=== PATIENT | male | born 1970 | race Caucasian/White ===

== ENCOUNTER 2021-06-13 13:56 | Inpatient (IN) ==
[2021-06-13] MEDS ORDERED: 0.9 % Sodium Chloride 500 ML IVC ONE (14:12)
[2021-06-13] MEDS ORDERED: Naloxone 0.4 MG/ML INJ IVP PRN (15:15)
[2021-06-13] MEDS ORDERED: Ondansetron 4 MG/2 ML VIAL IVP PRN (15:15)
[2021-06-13] MEDS: *HR* Rivaroxaban 10 MG TABLET PO SCH (18:27)
[2021-06-13] MEDS: Sucralfate 1 GM TABLET PO SCH ×2 (18:27→20:57)
[2021-06-13] MEDS ORDERED: Metoprolol 100 MG TABLET PO SCH (21:00)
[2021-06-13] MEDS: Stomatitis Mixture 5 ML UDC PO SCH ×2 (21:03→21:18)
[2021-06-13] MEDS: Melatonin 3 MG TABLET PO PRN (22:23)
[2021-06-14] MEDS: Sucralfate 1 GM TABLET PO SCH ×4 (06:45→20:23)
[2021-06-14] MEDS ORDERED: Triamcinolone Acet 0.1% CRM 15 GM TUBE TP ONE (08:15)
[2021-06-14] MEDS: Spironolactone 25 MG TABLET PO SCH (08:25)
[2021-06-14] MEDS: Metoprolol 100 MG TABLET PO SCH ×2 (08:25→20:22)
[2021-06-14] MEDS: Furosemide 40 MG TABLET PO SCH (08:25)
[2021-06-14] MEDS: Lactobacillus 1 EACH CAP.SPRINK PO SCH ×2 (08:31→20:21)
[2021-06-14] MEDS: Clotrimazole 1% CRM 15 GM TUBE TP SCH (09:56)
[2021-06-14] MEDS: Stomatitis Mixture 5 ML UDC PO SCH ×4 (10:00→20:22)
[2021-06-14] MEDS: *HR* Rivaroxaban 10 MG TABLET PO SCH (17:31)
[2021-06-14] MEDS: Melatonin 3 MG TABLET PO PRN (22:34)
[2021-06-15] MEDS: Metoprolol 100 MG TABLET PO SCH ×2 (07:39→21:33)
[2021-06-15] MEDS: Sucralfate 1 GM TABLET PO SCH ×4 (07:40→21:36)
[2021-06-15] MEDS: Spironolactone 25 MG TABLET PO SCH (07:40)
[2021-06-15] MEDS: Stomatitis Mixture 5 ML UDC PO SCH ×5 (07:40→21:58)
[2021-06-15] MEDS: Furosemide 40 MG TABLET PO SCH (07:40)
[2021-06-15] MEDS: Lactobacillus 1 EACH CAP.SPRINK PO SCH ×2 (07:40→21:32)
[2021-06-15] MEDS: Clotrimazole 1% CRM 15 GM TUBE TP SCH (10:01)
[2021-06-15] MEDS: *HR* Rivaroxaban 10 MG TABLET PO SCH (17:35)
[2021-06-16] MEDS ORDERED: *HR* Promethazine 25 MG/ML VIAL IM PRN (02:23)
[2021-06-16] MEDS: Ondansetron 4 MG/2 ML VIAL IVP PRN (02:39)
[2021-06-16] MEDS: Stomatitis Mixture 5 ML UDC PO SCH ×5 (07:34→21:12)
[2021-06-16] MEDS: Furosemide 40 MG TABLET PO SCH (08:11)
[2021-06-16] MEDS: Metoprolol 100 MG TABLET PO SCH ×2 (08:11→21:05)
[2021-06-16] MEDS: Spironolactone 25 MG TABLET PO SCH (08:11)
[2021-06-16] MEDS: Clotrimazole 1% CRM 15 GM TUBE TP SCH (08:12)
[2021-06-16] MEDS: Lactobacillus 1 EACH CAP.SPRINK PO SCH ×2 (08:12→21:05)
[2021-06-16] MEDS: Sucralfate 1 GM TABLET PO SCH ×4 (11:20→21:05)
[2021-06-16] MEDS: *HR* Rivaroxaban 10 MG TABLET PO SCH (16:29)
[2021-06-17] MEDS: Metoprolol 100 MG TABLET PO SCH ×2 (07:45→20:20)
[2021-06-17] MEDS: Sucralfate 1 GM TABLET PO SCH ×4 (07:45→20:21)
[2021-06-17] MEDS: Lactobacillus 1 EACH CAP.SPRINK PO SCH ×2 (07:45→20:20)
[2021-06-17] MEDS: Furosemide 40 MG TABLET PO SCH (07:46)
[2021-06-17] MEDS: Spironolactone 25 MG TABLET PO SCH (07:46)
[2021-06-17] MEDS: Clotrimazole 1% CRM 15 GM TUBE TP SCH (07:48)
[2021-06-17] MEDS: Stomatitis Mixture 5 ML UDC PO SCH ×4 (08:12→20:20)
[2021-06-17] MEDS: *HR* Rivaroxaban 10 MG TABLET PO SCH (16:49)
[2021-06-17] MEDS: Melatonin 3 MG TABLET PO PRN (22:34)
[2021-06-18] MEDS ORDERED: Acetaminophen 325 MG TABLET PO ONE (02:17)
[2021-06-18] MEDS: Lactobacillus 1 EACH CAP.SPRINK PO SCH ×2 (07:35→20:23)
[2021-06-18] MEDS: Spironolactone 25 MG TABLET PO SCH (07:35)
[2021-06-18] MEDS: Sucralfate 1 GM TABLET PO SCH ×4 (07:36→22:15)
[2021-06-18] MEDS: Metoprolol 100 MG TABLET PO SCH ×2 (07:36→20:22)
[2021-06-18] MEDS: Furosemide 40 MG TABLET PO SCH (07:36)
[2021-06-18] MEDS: Clotrimazole 1% CRM 15 GM TUBE TP SCH (07:43)
[2021-06-18] MEDS: Stomatitis Mixture 5 ML UDC PO SCH ×4 (07:45→20:25)
[2021-06-18] MEDS: *HR* Rivaroxaban 10 MG TABLET PO SCH (15:38)
[2021-06-18] MEDS: Melatonin 3 MG TABLET PO PRN (22:15)
[2021-06-19] MEDS ORDERED: Acetaminophen 325 MG TABLET PO ONE (01:31)
[2021-06-19] MEDS: Spironolactone 25 MG TABLET PO SCH (07:32)
[2021-06-19] MEDS: Metoprolol 100 MG TABLET PO SCH ×2 (07:32→21:55)
[2021-06-19] MEDS: Lactobacillus 1 EACH CAP.SPRINK PO SCH ×2 (07:32→21:54)
[2021-06-19] MEDS: Furosemide 40 MG TABLET PO SCH (07:32)
[2021-06-19] MEDS: Sucralfate 1 GM TABLET PO SCH ×4 (07:32→21:55)
[2021-06-19] MEDS: Clotrimazole 1% CRM 15 GM TUBE TP SCH (09:32)
[2021-06-19] MEDS: Stomatitis Mixture 5 ML UDC PO SCH ×4 (11:00→21:55)
[2021-06-19] MEDS: *HR* Rivaroxaban 10 MG TABLET PO SCH (17:16)
[2021-06-19] MEDS: Melatonin 3 MG TABLET PO PRN (21:54)
[2021-06-20] MEDS: Lactobacillus 1 EACH CAP.SPRINK PO SCH ×2 (08:57→21:00)
[2021-06-20] MEDS: Furosemide 40 MG TABLET PO SCH (08:57)
[2021-06-20] MEDS: Sucralfate 1 GM TABLET PO SCH ×4 (08:57→21:00)
[2021-06-20] MEDS: Spironolactone 25 MG TABLET PO SCH (08:57)
[2021-06-20] MEDS: Metoprolol 100 MG TABLET PO SCH ×2 (08:57→21:00)
[2021-06-20] MEDS: Stomatitis Mixture 5 ML UDC PO SCH ×4 (08:58→21:00)
[2021-06-20] MEDS: Clotrimazole 1% CRM 15 GM TUBE TP SCH (08:58)
[2021-06-20] MEDS: *HR* Rivaroxaban 10 MG TABLET PO SCH (18:16)
[2021-06-20] MEDS: Melatonin 3 MG TABLET PO PRN (22:16)
[2021-06-21] MEDS: Furosemide 40 MG TABLET PO SCH (08:14)
[2021-06-21] MEDS: Metoprolol 100 MG TABLET PO SCH ×2 (08:15→22:00)
[2021-06-21] MEDS: Spironolactone 25 MG TABLET PO SCH (08:15)
[2021-06-21] MEDS: Clotrimazole 1% CRM 15 GM TUBE TP SCH (08:15)
[2021-06-21] MEDS: Lactobacillus 1 EACH CAP.SPRINK PO SCH ×2 (08:15→22:00)
[2021-06-21] MEDS: Stomatitis Mixture 5 ML UDC PO SCH ×4 (08:15→22:01)
[2021-06-21] MEDS: Sucralfate 1 GM TABLET PO SCH ×4 (08:15→22:00)
[2021-06-21] MEDS: *HR* Rivaroxaban 10 MG TABLET PO SCH (17:31)
[2021-06-21] MEDS: Melatonin 3 MG TABLET PO PRN (22:04)
[2021-06-22] MEDS: Spironolactone 25 MG TABLET PO SCH (08:07)
[2021-06-22] MEDS: Lactobacillus 1 EACH CAP.SPRINK PO SCH ×2 (08:08→22:08)
[2021-06-22] MEDS: Sucralfate 1 GM TABLET PO SCH ×4 (08:08→22:08)
[2021-06-22] MEDS: Metoprolol 100 MG TABLET PO SCH ×2 (08:08→22:08)
[2021-06-22] MEDS: Furosemide 40 MG TABLET PO SCH (08:09)
[2021-06-22] MEDS: Clotrimazole 1% CRM 15 GM TUBE TP SCH (08:09)
[2021-06-22] MEDS: Stomatitis Mixture 5 ML UDC PO SCH ×4 (10:33→22:09)
[2021-06-22] MEDS: *HR* Rivaroxaban 10 MG TABLET PO SCH (16:56)
[2021-06-22] MEDS: Melatonin 3 MG TABLET PO PRN (22:09)
[2021-06-23] MEDS ORDERED: Ibuprofen 600 MG TABLET PO ONE (03:19)
[2021-06-23] MEDS ORDERED: Acetaminophen IV 1,000 MG/100 ML BAG IVPB ONE (03:51)
[2021-06-23] MEDS: Metoprolol 100 MG TABLET PO SCH ×2 (07:55→19:39)
[2021-06-23] MEDS: Lactobacillus 1 EACH CAP.SPRINK PO SCH ×2 (07:55→19:39)
[2021-06-23] MEDS: Furosemide 40 MG TABLET PO SCH (07:56)
[2021-06-23] MEDS: Stomatitis Mixture 5 ML UDC PO SCH ×4 (07:56→21:09)
[2021-06-23] MEDS: Spironolactone 25 MG TABLET PO SCH (07:56)
[2021-06-23] MEDS: Sucralfate 1 GM TABLET PO SCH ×4 (07:56→19:38)
[2021-06-23] MEDS: Clotrimazole 1% CRM 15 GM TUBE TP SCH (07:57)
[2021-06-23 16:51] LABS: Hematocrit 37.2 % (37.5-50.1); Hemoglobin 12.4 g/dL (12.9-16.9); Mean Corpuscular HGB Conc 33.3 g/dL (31.6-35.5); Mean Corpuscular Hemoglobin 31.8 pg (28.0-33.3); Mean Corpuscular Volume 95.4 fL (83.0-100.0); Mean Platelet Volume 10.2 fL (9.4-12.4); Platelet Count 250 K/mcL (140-400); Red Cell Distribution Width 13.5 % (11.5-14.5); White Blood Count 9.3 K/mcL (4.3-11.1)
[2021-06-23 17:19] LABS: BUN/Creatinine Ratio 15 (6-26); Blood Urea Nitrogen 14 mg/dL (6-20); Calcium 8.2 mg/dL (8.6-10.3); Carbon Dioxide 27 mEq/L (23-29); Chloride 94 mEq/L (98-107); Glucose 93 mg/dL (70-105); Osmolality,Calculated 270 (280-300); Potassium 2.4 mEq/L (3.5-5.1); Sodium 130 mEq/L (136-145); eGFR For African Americans > 60 (> 60); eGFR For Non-African Americans > 60 (> 60)
[2021-06-23] MEDS: *HR* Rivaroxaban 10 MG TABLET PO SCH (17:42)
[2021-06-23] MEDS: Melatonin 3 MG TABLET PO PRN (22:52)
[2021-06-24] MEDS: Sucralfate 1 GM TABLET PO SCH ×4 (07:38→20:33)
[2021-06-24] MEDS: Furosemide 40 MG TABLET PO SCH (07:38)
[2021-06-24] MEDS: Spironolactone 25 MG TABLET PO SCH (07:38)
[2021-06-24] MEDS: Lactobacillus 1 EACH CAP.SPRINK PO SCH ×2 (07:38→20:33)
[2021-06-24] MEDS: Metoprolol 100 MG TABLET PO SCH ×2 (07:39→20:33)
[2021-06-24] MEDS: Stomatitis Mixture 5 ML UDC PO SCH ×4 (07:39→20:34)
[2021-06-24] MEDS: Clotrimazole 1% CRM 15 GM TUBE TP SCH (07:40)
[2021-06-24 08:53] LABS: BUN/Creatinine Ratio 15 (6-26); Blood Urea Nitrogen 12 mg/dL (6-20); Calcium 8.4 mg/dL (8.6-10.3); Carbon Dioxide 28 mEq/L (23-29); Chloride 95 mEq/L (98-107); Glucose 98 mg/dL (70-105); Osmolality,Calculated 272 (280-300); Potassium 2.6 mEq/L (3.5-5.1); Sodium 131 mEq/L (136-145); eGFR For African Americans > 60 (> 60); eGFR For Non-African Americans > 60 (> 60)
[2021-06-24] MEDS ORDERED: Calcium Gluconate 1gm/50mL 1 GM/50 ML BAG IVPB ONE (11:39)
[2021-06-24 12:04] LABS: Magnesium 1.6 mg/dL (1.6-2.6)
[2021-06-24] MEDS: *HR* Rivaroxaban 10 MG TABLET PO SCH (15:58)
[2021-06-24] MEDS: Melatonin 3 MG TABLET PO PRN (22:32)
[2021-06-25 01:31] LABS: BUN/Creatinine Ratio 15 (6-26); Blood Urea Nitrogen 12 mg/dL (6-20); Calcium 8.2 mg/dL (8.6-10.3); Carbon Dioxide 26 mEq/L (23-29); Chloride 96 mEq/L (98-107); Glucose 108 mg/dL (70-105); Osmolality,Calculated 272 (280-300); Potassium 2.9 mEq/L (3.5-5.1); Sodium 131 mEq/L (136-145); eGFR For African Americans > 60 (> 60); eGFR For Non-African Americans > 60 (> 60)
[2021-06-25] MEDS: Lactobacillus 1 EACH CAP.SPRINK PO SCH ×2 (07:46→20:16)
[2021-06-25] MEDS: Furosemide 40 MG TABLET PO SCH (07:46)
[2021-06-25] MEDS: Spironolactone 25 MG TABLET PO SCH (07:46)
[2021-06-25] MEDS: Sucralfate 1 GM TABLET PO SCH ×4 (07:46→20:16)
[2021-06-25] MEDS: Clotrimazole 1% CRM 15 GM TUBE TP SCH (07:47)
[2021-06-25] MEDS: Metoprolol 100 MG TABLET PO SCH ×2 (07:47→20:16)
[2021-06-25] MEDS: Stomatitis Mixture 5 ML UDC PO SCH ×4 (10:22→20:17)
[2021-06-25] MEDS: *HR* Rivaroxaban 10 MG TABLET PO SCH (16:37)
[2021-06-25] MEDS: Melatonin 3 MG TABLET PO PRN (23:07)
[2021-06-26 02:34] LABS: BUN/Creatinine Ratio 13 (6-26); Blood Urea Nitrogen 11 mg/dL (6-20); Calcium 8.5 mg/dL (8.6-10.3); Carbon Dioxide 27 mEq/L (23-29); Chloride 97 mEq/L (98-107); Glucose 95 mg/dL (70-105); Osmolality,Calculated 273 (280-300); Potassium 3.1 mEq/L (3.5-5.1); Sodium 132 mEq/L (136-145); eGFR For African Americans > 60 (> 60); eGFR For Non-African Americans > 60 (> 60)
[2021-06-26] MEDS: Lactobacillus 1 EACH CAP.SPRINK PO SCH ×2 (10:58→20:22)
[2021-06-26] MEDS: Spironolactone 25 MG TABLET PO SCH (10:59)
[2021-06-26] MEDS: Furosemide 40 MG TABLET PO SCH (10:59)
[2021-06-26] MEDS: Metoprolol 100 MG TABLET PO SCH ×2 (10:59→20:22)
[2021-06-26] MEDS: Stomatitis Mixture 5 ML UDC PO SCH ×4 (11:00→20:23)
[2021-06-26] MEDS: Sucralfate 1 GM TABLET PO SCH ×3 (11:01→20:22)
[2021-06-26] MEDS: Clotrimazole 1% CRM 15 GM TUBE TP SCH (13:49)
[2021-06-26] MEDS: *HR* Rivaroxaban 10 MG TABLET PO SCH (17:49)
[2021-06-26] MEDS: Melatonin 3 MG TABLET PO PRN (20:24)
[2021-06-27 01:27] LABS: BUN/Creatinine Ratio 13 (6-26); Blood Urea Nitrogen 10 mg/dL (6-20); Calcium 8.4 mg/dL (8.6-10.3); Carbon Dioxide 27 mEq/L (23-29); Chloride 96 mEq/L (98-107); Glucose 109 mg/dL (70-105); Osmolality,Calculated 274 (280-300); Sodium 132 mEq/L (136-145); eGFR For African Americans > 60 (> 60); eGFR For Non-African Americans > 60 (> 60)
[2021-06-27] MEDS: Metoprolol 100 MG TABLET PO SCH ×2 (11:21→19:57)
[2021-06-27] MEDS: Spironolactone 25 MG TABLET PO SCH (11:24)
[2021-06-27] MEDS: Furosemide 40 MG TABLET PO SCH (11:25)
[2021-06-27] MEDS: Sucralfate 1 GM TABLET PO SCH ×4 (11:26→20:14)
[2021-06-27] MEDS: Lactobacillus 1 EACH CAP.SPRINK PO SCH ×2 (11:26→19:57)
[2021-06-27] MEDS: Clotrimazole 1% CRM 15 GM TUBE TP SCH (11:27)
[2021-06-27] MEDS: Stomatitis Mixture 5 ML UDC PO SCH ×4 (11:32→19:57)
[2021-06-27] MEDS: *HR* Rivaroxaban 10 MG TABLET PO SCH (16:28)
[2021-06-27] MEDS: Melatonin 3 MG TABLET PO PRN (22:11)
[2021-06-28 03:06] LABS: BUN/Creatinine Ratio 11 (6-26); Blood Urea Nitrogen 9 mg/dL (6-20); Calcium 8.4 mg/dL (8.6-10.3); Carbon Dioxide 27 mEq/L (23-29); Chloride 96 mEq/L (98-107); Glucose 97 mg/dL (70-105); Osmolality,Calculated 273 (280-300); Potassium 3.6 mEq/L (3.5-5.1); Sodium 132 mEq/L (136-145); eGFR For African Americans > 60 (> 60); eGFR For Non-African Americans > 60 (> 60)
[2021-06-28] MEDS: Sucralfate 1 GM TABLET PO SCH ×4 (09:15→21:49)
[2021-06-28] MEDS: Clotrimazole 1% CRM 15 GM TUBE TP SCH (09:16)
[2021-06-28] MEDS: Stomatitis Mixture 5 ML UDC PO SCH ×4 (09:16→21:49)
[2021-06-28] MEDS: Metoprolol 100 MG TABLET PO SCH ×2 (09:24→21:48)
[2021-06-28] MEDS: Lactobacillus 1 EACH CAP.SPRINK PO SCH ×2 (09:24→21:49)
[2021-06-28] MEDS: Furosemide 40 MG TABLET PO SCH (09:24)
[2021-06-28] MEDS: Spironolactone 25 MG TABLET PO SCH (09:25)
[2021-06-28] MEDS: *HR* Rivaroxaban 10 MG TABLET PO SCH (15:59)
[2021-06-28] MEDS: Melatonin 3 MG TABLET PO PRN (21:49)
[2021-06-29 03:55] LABS: BUN/Creatinine Ratio 12 (6-26); Blood Urea Nitrogen 9 mg/dL (6-20); Calcium 8.5 mg/dL (8.6-10.3); Carbon Dioxide 25 mEq/L (23-29); Chloride 98 mEq/L (98-107); Glucose 97 mg/dL (70-105); Osmolality,Calculated 273 (280-300); Potassium 3.4 mEq/L (3.5-5.1); Sodium 132 mEq/L (136-145); eGFR For African Americans > 60 (> 60); eGFR For Non-African Americans > 60 (> 60)
[2021-06-29] MEDS: Stomatitis Mixture 5 ML UDC PO SCH ×4 (09:41→19:46)
[2021-06-29] MEDS: Sucralfate 1 GM TABLET PO SCH ×4 (09:41→20:56)
[2021-06-29] MEDS: Lactobacillus 1 EACH CAP.SPRINK PO SCH ×2 (10:12→19:46)
[2021-06-29] MEDS: Furosemide 40 MG TABLET PO SCH (10:12)
[2021-06-29] MEDS: Metoprolol 100 MG TABLET PO SCH ×2 (10:12→19:46)
[2021-06-29] MEDS: Clotrimazole 1% CRM 15 GM TUBE TP SCH (10:12)
[2021-06-29] MEDS: Spironolactone 25 MG TABLET PO SCH (10:12)
[2021-06-29] MEDS: Vancomycin Oral Soln 125 MG/2.5 ML UDC PO SCH ×2 (15:12→19:46)
[2021-06-29] MEDS: *HR* Rivaroxaban 10 MG TABLET PO SCH (18:44)
[2021-06-29] MEDS: Melatonin 3 MG TABLET PO PRN (22:19)
[2021-06-30] MEDS: Vancomycin Oral Soln 125 MG/2.5 ML UDC PO SCH ×4 (02:23→18:09)
[2021-06-30 05:22] LABS: BUN/Creatinine Ratio 10 (6-26); Blood Urea Nitrogen 8 mg/dL (6-20); Calcium 8.2 mg/dL (8.6-10.3); Carbon Dioxide 27 mEq/L (23-29); Chloride 99 mEq/L (98-107); Glucose 92 mg/dL (70-105); Osmolality,Calculated 278 (280-300); Sodium 135 mEq/L (136-145); eGFR For African Americans > 60 (> 60); eGFR For Non-African Americans > 60 (> 60)
[2021-06-30] MEDS: Furosemide 40 MG TABLET PO SCH (09:15)
[2021-06-30] MEDS: Spironolactone 25 MG TABLET PO SCH (09:15)
[2021-06-30] MEDS: Lactobacillus 1 EACH CAP.SPRINK PO SCH ×2 (09:15→21:44)
[2021-06-30] MEDS: Potassium Chloride Elixir 20 MEQ/15 ML UDC PO SCH ×2 (09:15→21:44)
[2021-06-30] MEDS: Metoprolol 100 MG TABLET PO SCH ×2 (09:15→21:43)
[2021-06-30] MEDS: Clotrimazole 1% CRM 15 GM TUBE TP SCH ×2 (09:16→12:02)
[2021-06-30] MEDS: Sucralfate 1 GM TABLET PO SCH ×4 (10:18→21:43)
[2021-06-30] MEDS: Stomatitis Mixture 5 ML UDC PO SCH ×4 (10:19→21:47)
[2021-06-30] MEDS: *HR* Rivaroxaban 10 MG TABLET PO SCH (18:09)
[2021-07-01] MEDS: Melatonin 3 MG TABLET PO PRN ×2 (00:04→22:39)
[2021-07-01] MEDS: Vancomycin Oral Soln 125 MG/2.5 ML UDC PO SCH ×4 (00:05→17:12)
[2021-07-01 06:25] LABS: Basophils # 0.1 K/mcL (0.0-0.2); Basophils % 0.6 %; Eosinophils # 0.3 K/mcL (0.0-0.6); Eosinophils % 2.8 %; Immature Granulocytes % 0.5 % (0-4); Lymphocytes # 1.7 K/mcL (0.6-4.6); Lymphocytes % 19.3 %; Mean Corpuscular HGB Conc 32.4 g/dL (31.6-35.5); Mean Corpuscular Hemoglobin 30.9 pg (28.0-33.3); Mean Corpuscular Volume 95.5 fL (83.0-100.0); Mean Platelet Volume 9.5 fL (9.4-12.4); Monocytes % 10.7 %; Neutrophils # 5.9 K/mcL (1.6-8.9); Platelet Count 249 K/mcL (140-400); Red Blood Count 3.56 M/mcL (4.19-5.50); Red Cell Distribution Width 12.8 % (11.5-14.5); Segmented Neutrophils % 66.1 %; White Blood Count 8.9 K/mcL (4.3-11.1)
[2021-07-01 06:40] LABS: BUN/Creatinine Ratio 9 (6-26); Blood Urea Nitrogen 7 mg/dL (6-20); Calcium 8.1 mg/dL (8.6-10.3); Carbon Dioxide 28 mEq/L (23-29); Chloride 101 mEq/L (98-107); Glucose 97 mg/dL (70-105); Magnesium 1.5 mg/dL (1.6-2.6); Osmolality,Calculated 280 (280-300); Sodium 136 mEq/L (136-145); eGFR For African Americans > 60 (> 60); eGFR For Non-African Americans > 60 (> 60)
[2021-07-01] MEDS: Lactobacillus 1 EACH CAP.SPRINK PO SCH ×2 (08:35→22:39)
[2021-07-01] MEDS: Metoprolol 100 MG TABLET PO SCH ×2 (08:35→22:39)
[2021-07-01] MEDS: Spironolactone 25 MG TABLET PO SCH (08:35)
[2021-07-01] MEDS: Furosemide 40 MG TABLET PO SCH (08:35)
[2021-07-01] MEDS: Sucralfate 1 GM TABLET PO SCH ×4 (08:35→22:39)
[2021-07-01] MEDS: Potassium Chloride Elixir 20 MEQ/15 ML UDC PO SCH ×2 (09:07→17:10)
[2021-07-01] MEDS: Stomatitis Mixture 5 ML UDC PO SCH ×4 (09:07→22:38)
[2021-07-01] MEDS: *HR* Rivaroxaban 10 MG TABLET PO SCH (17:09)
[2021-07-02] MEDS: Vancomycin Oral Soln 125 MG/2.5 ML UDC PO SCH ×4 (01:28→16:58)
[2021-07-02 05:35] LABS: Basophils # 0.1 K/mcL (0.0-0.2); Basophils % 0.6 %; Eosinophils # 0.3 K/mcL (0.0-0.6); Eosinophils % 3.3 %; Hematocrit 33.8 % (37.5-50.1); Hemoglobin 11.2 g/dL (12.9-16.9); Immature Granulocytes % 0.6 % (0-4); Lymphocytes # 2.1 K/mcL (0.6-4.6); Lymphocytes % 25.6 %; Mean Corpuscular HGB Conc 33.1 g/dL (31.6-35.5); Mean Corpuscular Hemoglobin 31.7 pg (28.0-33.3); Mean Corpuscular Volume 95.8 fL (83.0-100.0); Mean Platelet Volume 9.5 fL (9.4-12.4); Monocytes # 0.8 K/mcL (0.0-1.3); Monocytes % 9.2 %; Neutrophils # 4.9 K/mcL (1.6-8.9); Platelet Count 268 K/mcL (140-400); Red Blood Count 3.53 M/mcL (4.19-5.50); Red Cell Distribution Width 12.7 % (11.5-14.5); Segmented Neutrophils % 60.7 %; White Blood Count 8.1 K/mcL (4.3-11.1)
[2021-07-02 06:16] LABS: BUN/Creatinine Ratio 8 (6-26); Blood Urea Nitrogen 6 mg/dL (6-20); Calcium 8.1 mg/dL (8.6-10.3); Carbon Dioxide 25 mEq/L (23-29); Chloride 101 mEq/L (98-107); Glucose 87 mg/dL (70-105); Magnesium 1.6 mg/dL (1.6-2.6); Osmolality,Calculated 279 (280-300); Potassium 3.2 mEq/L (3.5-5.1); Sodium 136 mEq/L (136-145); eGFR For African Americans > 60 (> 60); eGFR For Non-African Americans > 60 (> 60)
[2021-07-02] MEDS: Metoprolol 100 MG TABLET PO SCH ×2 (09:06→20:29)
[2021-07-02] MEDS: Spironolactone 25 MG TABLET PO SCH (09:06)
[2021-07-02] MEDS: Stomatitis Mixture 5 ML UDC PO SCH ×4 (09:06→20:29)
[2021-07-02] MEDS: Potassium Chloride Elixir 20 MEQ/15 ML UDC PO SCH ×2 (09:06→15:59)
[2021-07-02] MEDS: Lactobacillus 1 EACH CAP.SPRINK PO SCH ×2 (09:07→20:29)
[2021-07-02] MEDS: Furosemide 40 MG TABLET PO SCH (09:07)
[2021-07-02] MEDS: Sucralfate 1 GM TABLET PO SCH ×4 (09:07→20:29)
[2021-07-02] MEDS: Clotrimazole 1% CRM 15 GM TUBE TP SCH (09:18)
[2021-07-02] MEDS: *HR* Rivaroxaban 10 MG TABLET PO SCH (15:59)
[2021-07-02] MEDS: Melatonin 3 MG TABLET PO PRN (22:34)
[2021-07-03] MEDS: Vancomycin Oral Soln 125 MG/2.5 ML UDC PO SCH ×5 (00:24→22:31)
[2021-07-03 01:37] LABS: Basophils # 0.1 K/mcL (0.0-0.2); Basophils % 0.8 %; Eosinophils # 0.3 K/mcL (0.0-0.6); Hematocrit 34.4 % (37.5-50.1); Hemoglobin 11.5 g/dL (12.9-16.9); Immature Granulocytes % 0.5 % (0-4); Lymphocytes # 2.3 K/mcL (0.6-4.6); Lymphocytes % 24.7 %; Mean Corpuscular HGB Conc 33.4 g/dL (31.6-35.5); Mean Corpuscular Hemoglobin 32.3 pg (28.0-33.3); Mean Corpuscular Volume 96.6 fL (83.0-100.0); Mean Platelet Volume 9.3 fL (9.4-12.4); Monocytes # 0.7 K/mcL (0.0-1.3); Monocytes % 7.9 %; Neutrophils # 5.9 K/mcL (1.6-8.9); Platelet Count 272 K/mcL (140-400); Red Blood Count 3.56 M/mcL (4.19-5.50); Red Cell Distribution Width 12.6 % (11.5-14.5); Segmented Neutrophils % 63.1 %; White Blood Count 9.3 K/mcL (4.3-11.1)
[2021-07-03 02:02] LABS: BUN/Creatinine Ratio 12 (6-26); Blood Urea Nitrogen 8 mg/dL (6-20); Carbon Dioxide 27 mEq/L (23-29); Chloride 102 mEq/L (98-107); Glucose 96 mg/dL (70-105); Magnesium 1.7 mg/dL (1.6-2.6); Osmolality,Calculated 280 (280-300); Potassium 3.6 mEq/L (3.5-5.1); Sodium 136 mEq/L (136-145); eGFR For African Americans > 60 (> 60); eGFR For Non-African Americans > 60 (> 60)
[2021-07-03] MEDS: Metoprolol 100 MG TABLET PO SCH ×2 (07:53→20:25)
[2021-07-03] MEDS: Stomatitis Mixture 5 ML UDC PO SCH ×4 (07:53→20:25)
[2021-07-03] MEDS: Spironolactone 25 MG TABLET PO SCH (07:54)
[2021-07-03] MEDS: Lactobacillus 1 EACH CAP.SPRINK PO SCH ×2 (07:54→20:25)
[2021-07-03] MEDS: Furosemide 40 MG TABLET PO SCH (07:54)
[2021-07-03] MEDS: Potassium Chloride Elixir 20 MEQ/15 ML UDC PO SCH (07:54)
[2021-07-03] MEDS: Sucralfate 1 GM TABLET PO SCH ×4 (07:54→20:25)
[2021-07-03] MEDS: Clotrimazole 1% CRM 15 GM TUBE TP SCH (07:56)
[2021-07-03] MEDS: Ondansetron 4 MG/2 ML VIAL IVP PRN (08:17)
[2021-07-03] MEDS: Acetaminophen 325 MG TABLET PO PRN ×2 (08:48→22:50)
[2021-07-03] MEDS: *HR* Rivaroxaban 10 MG TABLET PO SCH (16:36)
[2021-07-03] MEDS: Melatonin 3 MG TABLET PO PRN (22:31)
[2021-07-04] MEDS: Vancomycin Oral Soln 125 MG/2.5 ML UDC PO SCH ×3 (05:08→21:39)
[2021-07-04] MEDS: Sucralfate 1 GM TABLET PO SCH ×4 (05:08→21:40)
[2021-07-04] MEDS: Stomatitis Mixture 5 ML UDC PO SCH ×4 (08:39→21:39)
[2021-07-04] MEDS: Potassium Chloride Elixir 20 MEQ/15 ML UDC PO SCH (08:39)
[2021-07-04] MEDS: Furosemide 40 MG TABLET PO SCH (08:39)
[2021-07-04] MEDS: Metoprolol 100 MG TABLET PO SCH ×2 (08:39→21:39)
[2021-07-04] MEDS: Lactobacillus 1 EACH CAP.SPRINK PO SCH ×2 (08:39→21:39)
[2021-07-04] MEDS: Spironolactone 25 MG TABLET PO SCH (08:39)
[2021-07-04] MEDS: Clotrimazole 1% CRM 15 GM TUBE TP SCH (08:39)
[2021-07-04] MEDS: *HR* Rivaroxaban 10 MG TABLET PO SCH (16:31)
[2021-07-04] MEDS: Melatonin 3 MG TABLET PO PRN (22:48)
[2021-07-05] MEDS: Vancomycin Oral Soln 125 MG/2.5 ML UDC PO SCH ×4 (00:50→17:45)
[2021-07-05 00:55] LABS: Hematocrit 34.9 % (37.5-50.1); Hemoglobin 11.4 g/dL (12.9-16.9); Mean Corpuscular HGB Conc 32.7 g/dL (31.6-35.5); Mean Corpuscular Hemoglobin 31.4 pg (28.0-33.3); Mean Corpuscular Volume 96.1 fL (83.0-100.0); Mean Platelet Volume 9.4 fL (9.4-12.4); Platelet Count 315 K/mcL (140-400); Red Blood Count 3.63 M/mcL (4.19-5.50); Red Cell Distribution Width 12.4 % (11.5-14.5); White Blood Count 10.6 K/mcL (4.3-11.1)
[2021-07-05 01:14] LABS: BUN/Creatinine Ratio 9 (6-26); Blood Urea Nitrogen 7 mg/dL (6-20); Calcium 8.2 mg/dL (8.6-10.3); Carbon Dioxide 25 mEq/L (23-29); Chloride 99 mEq/L (98-107); Glucose 95 mg/dL (70-105); Osmolality,Calculated 276 (280-300); Potassium 3.4 mEq/L (3.5-5.1); Sodium 134 mEq/L (136-145); eGFR For African Americans > 60 (> 60); eGFR For Non-African Americans > 60 (> 60)
[2021-07-05] MEDS: Potassium Chloride Elixir 20 MEQ/15 ML UDC PO SCH (09:51)
[2021-07-05] MEDS: Lactobacillus 1 EACH CAP.SPRINK PO SCH ×2 (09:52→21:10)
[2021-07-05] MEDS: Sucralfate 1 GM TABLET PO SCH ×4 (09:52→21:09)
[2021-07-05] MEDS: Spironolactone 25 MG TABLET PO SCH (09:52)
[2021-07-05] MEDS: Metoprolol 100 MG TABLET PO SCH ×2 (09:52→21:10)
[2021-07-05] MEDS: Furosemide 40 MG TABLET PO SCH (09:53)
[2021-07-05] MEDS: Stomatitis Mixture 5 ML UDC PO SCH ×4 (12:41→21:10)
[2021-07-05] MEDS: Clotrimazole 1% CRM 15 GM TUBE TP SCH (12:41)
[2021-07-05] MEDS: Acetaminophen 325 MG TABLET PO PRN (17:46)
[2021-07-05] MEDS: *HR* Rivaroxaban 10 MG TABLET PO SCH (17:46)
[2021-07-05] MEDS: Melatonin 3 MG TABLET PO PRN (21:10)
[2021-07-06] MEDS: Vancomycin Oral Soln 125 MG/2.5 ML UDC PO SCH ×4 (02:22→18:39)
[2021-07-06] MEDS: Sucralfate 1 GM TABLET PO SCH ×4 (05:45→20:47)
[2021-07-06 09:05] LABS: BUN/Creatinine Ratio 9 (6-26); Blood Urea Nitrogen 7 mg/dL (6-20); Calcium 8.2 mg/dL (8.6-10.3); Carbon Dioxide 28 mEq/L (23-29); Chloride 100 mEq/L (98-107); Glucose 93 mg/dL (70-105); Magnesium 1.9 mg/dL (1.6-2.6); Osmolality,Calculated 282 (280-300); Potassium 3.4 mEq/L (3.5-5.1); Sodium 137 mEq/L (136-145); eGFR For African Americans > 60 (> 60); eGFR For Non-African Americans > 60 (> 60)
[2021-07-06] MEDS: Potassium Chloride Elixir 20 MEQ/15 ML UDC PO SCH (09:34)
[2021-07-06] MEDS: Metoprolol 100 MG TABLET PO SCH ×2 (09:35→20:47)
[2021-07-06] MEDS: Spironolactone 25 MG TABLET PO SCH (09:36)
[2021-07-06] MEDS: Lactobacillus 1 EACH CAP.SPRINK PO SCH ×2 (09:36→20:47)
[2021-07-06] MEDS: Furosemide 40 MG TABLET PO SCH (09:36)
[2021-07-06] MEDS: Stomatitis Mixture 5 ML UDC PO SCH ×4 (13:41→20:48)
[2021-07-06] MEDS: Clotrimazole 1% CRM 15 GM TUBE TP SCH (13:41)
[2021-07-06] MEDS: *HR* Rivaroxaban 10 MG TABLET PO SCH (17:26)
[2021-07-06] MEDS: Melatonin 3 MG TABLET PO PRN (22:22)
[2021-07-07] MEDS: Vancomycin Oral Soln 125 MG/2.5 ML UDC PO SCH ×4 (00:37→20:28)
[2021-07-07] MEDS: Sucralfate 1 GM TABLET PO SCH ×4 (06:07→20:27)
[2021-07-07] MEDS: Stomatitis Mixture 5 ML UDC PO SCH ×4 (10:13→20:28)
[2021-07-07] MEDS: Furosemide 40 MG TABLET PO SCH (10:14)
[2021-07-07] MEDS: Potassium Chloride Elixir 20 MEQ/15 ML UDC PO SCH (10:14)
[2021-07-07] MEDS: Spironolactone 25 MG TABLET PO SCH (10:14)
[2021-07-07] MEDS: Metoprolol 100 MG TABLET PO SCH ×2 (10:14→20:27)
[2021-07-07] MEDS: Lactobacillus 1 EACH CAP.SPRINK PO SCH ×2 (10:14→20:27)
[2021-07-07] MEDS: Clotrimazole 1% CRM 15 GM TUBE TP SCH (10:15)
[2021-07-07] MEDS ORDERED: Methyl Salicylate/Menthol 57 APPL/57 GM TUBE TP PRN (11:50)
[2021-07-07] MEDS ORDERED: Methyl Salicylate/Menthol 85 APPL/85 GM TUBE TP PRN (12:00)
[2021-07-07] MEDS: *HR* Rivaroxaban 10 MG TABLET PO SCH (17:17)
[2021-07-07] MEDS: Melatonin 3 MG TABLET PO PRN (22:44)
[2021-07-08] MEDS: Vancomycin Oral Soln 125 MG/2.5 ML UDC PO SCH ×5 (01:19→23:58)
[2021-07-08] MEDS: Sucralfate 1 GM TABLET PO SCH ×4 (06:10→20:14)
[2021-07-08] MEDS: Metoprolol 100 MG TABLET PO SCH ×2 (09:06→20:14)
[2021-07-08] MEDS: Potassium Chloride Elixir 20 MEQ/15 ML UDC PO SCH (09:06)
[2021-07-08] MEDS: Lactobacillus 1 EACH CAP.SPRINK PO SCH ×2 (09:06→20:14)
[2021-07-08] MEDS: Spironolactone 25 MG TABLET PO SCH (09:06)
[2021-07-08] MEDS: Clotrimazole 1% CRM 15 GM TUBE TP SCH (09:07)
[2021-07-08] MEDS: Furosemide 40 MG TABLET PO SCH (09:07)
[2021-07-08] MEDS: Stomatitis Mixture 5 ML UDC PO SCH ×4 (09:12→20:14)
[2021-07-08] MEDS: *HR* Rivaroxaban 10 MG TABLET PO SCH (17:07)
[2021-07-08] MEDS: Acetaminophen 325 MG TABLET PO PRN (20:27)
[2021-07-08] MEDS: Melatonin 3 MG TABLET PO PRN (23:09)
[2021-07-09] MEDS ORDERED: traZODone 50 MG TABLET PO ONE (03:50)
[2021-07-09] MEDS: Vancomycin Oral Soln 125 MG/2.5 ML UDC PO SCH ×2 (06:01→12:10)
[2021-07-09] MEDS: Sucralfate 1 GM TABLET PO SCH ×2 (06:01→12:10)
[2021-07-09] MEDS: Metoprolol 100 MG TABLET PO SCH (08:05)
[2021-07-09] MEDS: Spironolactone 25 MG TABLET PO SCH (08:05)
[2021-07-09] MEDS: Furosemide 40 MG TABLET PO SCH (08:05)
[2021-07-09] MEDS: Potassium Chloride Elixir 20 MEQ/15 ML UDC PO SCH (08:06)
[2021-07-09] MEDS: Stomatitis Mixture 5 ML UDC PO SCH ×2 (08:06→12:10)
[2021-07-09] MEDS: Lactobacillus 1 EACH CAP.SPRINK PO SCH (08:06)
[2021-07-09] MEDS: Clotrimazole 1% CRM 15 GM TUBE TP SCH (08:08)
[2021-07-09 10:28] LABS: Adenovirus Not Detected (Not Detect); Bordetella Pertussis Not Detected (Not Detect); Chlamydophila pneumoniae Not Detected (Not Detect); Coronavirus 229E Not Detected (Not Detect); Coronavirus HKU1 Not Detected (Not Detect); Coronavirus NL63 Not Detected (Not Detect); Coronavirus OC43 Not Detected (Not Detect); Human Metapneumovirus Not Detected (Not Detect); Human Rhinovirus/Enterovirus Not Detected (Not Detect); Influenza A Subtype 2009 H1 Not Detected (Not Detect); Influenza B Not Detected (Not Detect); Mycoplasma pneumoniae Not Detected (Not Detect); Parainfluenza Virus 1 Not Detected (Not Detect); Parainfluenza Virus 2 Not Detected (Not Detect); Parainfluenza Virus 3 Not Detected (Not Detect); Parainfluenza Virus 4 Not Detected (Not Detect); Respiratory Syncytial Virus Not Detected (Not Detect); SARS-CoV-2 Not Detected (Not Detect)
[2021-07-09 10:35] VITALS: BP 111/77; PULSE 65; TEMP 98; O2SAT 98
== END 2021-07-09 15:00 | DRG 308 ==
LOC: EMEROOARM 13:56 → 3BNU 13:56 → SUATTDRO 15:03 → 3NENU 15:27 → 3BNU 06-17 17:08 → SUATTDRO 06-27 13:49
PROVIDERS: ADMIT Internal Medicine; ATTEND Internal Medicine

== ENCOUNTER 2022-04-26 13:53 | Inpatient (IN) ==
[2022-04-26] MEDS ORDERED: Nitroglycerin 0.4 MG TAB.SUBL SL STA (14:22)
[2022-04-26] MEDS ORDERED: Furosemide 40 MG/4 ML VIAL IVP ONE (14:22)
[2022-04-26 14:38] LABS: Basophils % 0.3 %; Eosinophils # 0.1 K/mcL (0.0-0.6); Eosinophils % 0.8 %; Hematocrit 47.3 % (37.5-50.1); Hemoglobin 15.3 g/dL (12.9-16.9); Immature Granulocytes % 0.3 % (0-4); Lymphocytes # 0.7 K/mcL (0.6-4.6); Lymphocytes % 6.3 %; Mean Corpuscular HGB Conc 32.3 g/dL (31.6-35.5); Mean Corpuscular Hemoglobin 31.5 pg (28.0-33.3); Mean Corpuscular Volume 97.3 fL (83.0-100.0); Mean Platelet Volume 10.1 fL (9.4-12.4); Monocytes # 0.1 K/mcL (0.0-1.3); Monocytes % 0.8 %; Neutrophils # 10.7 K/mcL (1.6-8.9); Platelet Count 281 K/mcL (140-400); Red Blood Count 4.86 M/mcL (4.19-5.50); Red Cell Distribution Width 13.9 % (11.5-14.5); Segmented Neutrophils % 91.5 %; White Blood Count 11.7 K/mcL (4.3-11.1)
[2022-04-26 14:42] LABS: VBG HCO3 24 mEq/L (21-27); VBG PCO2 49 mmHg (41-51); VBG PO2 63 mmHg (25-50)
[2022-04-26 14:50] LABS: BUN/Creatinine Ratio 13 (6-26); Blood Urea Nitrogen 20 mg/dL (6-20); Calcium 9.3 mg/dL (8.6-10.3); Carbon Dioxide 22 mEq/L (23-29); Chloride 101 mEq/L (98-107); Glucose 109 mg/dL (70-105); Osmolality,Calculated 283 (280-300); Sodium 135 mEq/L (136-145); Troponin I < 0.03 ng/mL (< 0.04)
[2022-04-26 14:54] LABS: Bilirubin,Urine Negative (Negative); Blood,Urine Small (Negative); Clarity,Urine Clear (Clear); Color,Urine Colorless (Yellow); Glucose,Urine (UA) Normal (Normal); Ketones,Urine Negative (Negative); Leukocyte Esterase,Urine Negative (Negative); Nitrite,Urine Negative (Negative); PH,Urine 5.5 pH Units (5.0-8.0); Protein,Urine Negative (Neg-Trace); RBC,Urine 0-3 per hpf (0-3); Specific Gravity,Urine 1.009 (1.010-1.025); Urobilinogen,Urine Normal (Normal); WBC,Urine 0-3 per hpf (0-3)
[2022-04-26] MEDS ORDERED: Naloxone 0.4 MG/ML INJ IVP PRN (16:08)
[2022-04-26] MEDS: Vancomycin Oral Soln 125 MG/2.5 ML UDC PO SCH (18:53)
[2022-04-26] MEDS ORDERED: Metoprolol 100 MG TABLET PO SCH (21:00)
[2022-04-26] MEDS: Ondansetron 4 MG/2 ML VIAL IVP PRN (21:30)
[2022-04-26] MEDS ORDERED: *HR* Promethazine 25 MG/ML VIAL IM ONE (23:19)
[2022-04-26] MEDS: Acetaminophen 325 MG TABLET PO PRN (23:32)
[2022-04-26] MEDS: *HR* Metoprolol 5 MG/5 ML VIAL IVP PRN (23:33)
[2022-04-27] MEDS: Melatonin 3 MG TABLET PO PRN (02:00)
[2022-04-27 02:48] LABS: Hematocrit 40.6 % (37.5-50.1); Mean Corpuscular HGB Conc 33.5 g/dL (31.6-35.5); Mean Corpuscular Hemoglobin 31.8 pg (28.0-33.3); Mean Corpuscular Volume 94.9 fL (83.0-100.0); Mean Platelet Volume 10.3 fL (9.4-12.4); Platelet Count 217 K/mcL (140-400); Red Blood Count 4.28 M/mcL (4.19-5.50); Red Cell Distribution Width 13.9 % (11.5-14.5); White Blood Count 15.7 K/mcL (4.3-11.1)
[2022-04-27 02:50] LABS: Hemoglobin 13.6 g/dL (12.9-16.9)
[2022-04-27] MEDS: traZODone 50 MG TABLET PO PRN ×2 (03:06→21:04)
[2022-04-27 03:08] LABS: Calcium 8.2 mg/dL (8.6-10.3); Chol/HDL Ratio 4.2 (0-4.9); Magnesium 1.4 mg/dL (1.6-2.6); Potassium 3.9 mEq/L (3.5-5.1)
[2022-04-27] MEDS ORDERED: *HR* Promethazine 25 MG/ML VIAL IM PRN (04:07)
[2022-04-27 07:12] LABS: A.calcoaceticus-baumannii cplx Not Detected (Not Detect); Bacteroides fragilis by PCR Not Detected (Not Detect); Candida albicans by PCR Not Detected (Not Detect); Candida auris by PCR Not Detected (Not Detect); Candida glabrata by PCR Not Detected (Not Detect); Candida krusei by PCR Not Detected (Not Detect); Candida parapsilosis by PCR Not Detected (Not Detect); Candida tropicalis by PCR Not Detected (Not Detect); Crypto. neoformans/gattii PCR Not Detected (Not Detect); Enterobacter cloacae Cmplx PCR Not Detected (Not Detect); Enterobacterales by PCR Not Detected (Not Detect); Enterococcus faecalis by PCR Not Detected (Not Detect); Enterococcus faecium by PCR Not Detected (Not Detect); Escherichia coli by PCR Not Detected (Not Detect); Klebs. pneumoniae group by PCR Not Detected (Not Detect); Klebsiella aerogenes by PCR Not Detected (Not Detect); Klebsiella oxytoca by PCR Not Detected (Not Detect); Proteus by PCR Not Detected (Not Detect); Pseudomonas aeruginosa by PCR Not Detected (Not Detect); Salmonella species by PCR Not Detected (Not Detect); Serratia marcescens by PCR Not Detected (Not Detect); Staph epidermidis by PCR Not Detected (Not Detect); Staph lugdunensis by PCR Not Detected (Not Detect); Staphylococcus aureus by PCR Not Detected (Not Detect); Staphylococcus by PCR Not Detected (Not Detect); Stenotrophomonas maltophilia Not Detected (Not Detect); Streptococcus agalactiae(B)PCR Not Detected (Not Detect); Streptococcus by PCR Not Detected (Not Detect); Streptococcus pneumoniae PCR Not Detected (Not Detect); Streptococcus pyogenes (A) PCR Not Detected (Not Detect)
[2022-04-27] MEDS ORDERED: Vancomycin 2,000 MG/520 ML IV.SOLN IVPB SCH (08:00)
[2022-04-27] MEDS ORDERED: Vancomycin 2,000 MG/520 ML IV.SOLN IVPB ONE ×2 (08:00→12:30)
[2022-04-27] MEDS: *HR* Rivaroxaban 10 MG TABLET PO SCH (08:18)
[2022-04-27] MEDS: Albumin 25% 25gram/100mL 25 GM/100 ML IV.SOLN IVPB SCH ×2 (08:18→16:39)
[2022-04-27] MEDS: Acetaminophen 325 MG TABLET PO PRN ×2 (08:41→18:28)
[2022-04-27] MEDS: Furosemide 40 MG/4 ML VIAL IVP SCH (11:30)
[2022-04-27] MEDS: Metoprolol 100 MG TABLET PO SCH ×2 (11:31→20:17)
[2022-04-27] MEDS: Vancomycin Oral Soln 125 MG/2.5 ML UDC PO SCH ×2 (13:01→18:28)
[2022-04-27] MEDS: *HR* Metoprolol 5 MG/5 ML VIAL IVP PRN (16:33)
[2022-04-27] MEDS ORDERED: *HR* Digoxin 0.5 MG/2 ML AMPUL IVP ONE (18:53)
[2022-04-27] MEDS ORDERED: 0.9 % Sodium Chloride 250 ML IVC ONE (18:54)
[2022-04-27] MEDS: Piperacillin/Tazobactam 3.375 GM in 0.9 % Sodium Chloride Mini Bag 100 ML IVPB SCH (20:15)
[2022-04-28] MEDS: Albumin 25% 25gram/100mL 25 GM/100 ML IV.SOLN IVPB SCH ×3 (00:15→16:26)
[2022-04-28] MEDS: Piperacillin/Tazobactam 3.375 GM in 0.9 % Sodium Chloride Mini Bag 100 ML IVPB SCH (03:51)
[2022-04-28 04:52] LABS: Basophils # 0.1 K/mcL (0.0-0.2); Basophils % 0.6 %; Eosinophils # 0.1 K/mcL (0.0-0.6); Eosinophils % 0.7 %; Hematocrit 34.2 % (37.5-50.1); Immature Granulocytes % 1.7 % (0-4); Lymphocytes # 0.3 K/mcL (0.6-4.6); Lymphocytes % 3.1 %; Mean Corpuscular HGB Conc 33.3 g/dL (31.6-35.5); Mean Corpuscular Hemoglobin 31.5 pg (28.0-33.3); Mean Corpuscular Volume 94.5 fL (83.0-100.0); Mean Platelet Volume 10.6 fL (9.4-12.4); Monocytes # 0.4 K/mcL (0.0-1.3); Monocytes % 3.5 %; Neutrophils # 9.7 K/mcL (1.6-8.9); Platelet Count 156 K/mcL (140-400); Red Blood Count 3.62 M/mcL (4.19-5.50); Red Cell Distribution Width 13.8 % (11.5-14.5); Segmented Neutrophils % 90.4 %; White Blood Count 10.7 K/mcL (4.3-11.1)
[2022-04-28 04:57] LABS: Hemoglobin 11.4 g/dL (12.9-16.9)
[2022-04-28 05:08] LABS: Magnesium 1.9 mg/dL (1.6-2.6); Potassium 4.3 mEq/L (3.5-5.1)
[2022-04-28] MEDS ORDERED: Triamcinolone Acet 0.1% CRM 15 GM TUBE TP PRN (07:29)
[2022-04-28] MEDS: Metoprolol 100 MG TABLET PO SCH ×2 (07:54→20:18)
[2022-04-28] MEDS: Loratadine 10 MG TABLET PO SCH (07:55)
[2022-04-28] MEDS: Vancomycin Oral Soln 125 MG/2.5 ML UDC PO SCH ×2 (07:55→20:19)
[2022-04-28] MEDS: *HR* Rivaroxaban 10 MG TABLET PO SCH (07:55)
[2022-04-28] MEDS: Sucralfate 1 GM TABLET PO SCH ×2 (07:55→20:19)
[2022-04-28] MEDS: Tolterodine LA (24 HR) 4 MG CAP.ER.24H PO SCH (08:22)
[2022-04-28] MEDS ORDERED: NON-FORMULARY MEDICATION 1 EACH EACH (Omeprazole [Prilosec] 40 MG Capsule.Dr) PO SCH (09:00)
[2022-04-28] MEDS: Ampicillin/Sulbactam 3,000 MG in 0.9 % Sodium Chloride Mini Bag 100 ML IVPB SCH ×3 (09:53→20:19)
[2022-04-28] MEDS ORDERED: Vancomycin 2,000 MG/520 ML IV.SOLN IVPB SCH (11:00)
[2022-04-28] MEDS: Acetaminophen 325 MG TABLET PO PRN (12:51)
[2022-04-28] MEDS ORDERED: Vancomycin 500 MG in 0.9 % Sodium Chloride Mini Bag 100 ML IVPB SCH (13:00)
[2022-04-28 15:21] LABS: Sodium, Urine 14.2 mEq/L
[2022-04-28] MEDS ORDERED: *HR* OxyCODONE/APAP 5/325 TABLET PO PRN (16:33)
[2022-04-28] MEDS: *HR* HYDROcodone/Acet 5/325 mg TABLET PO PRN (20:18)
[2022-04-28] MEDS: Melatonin 3 MG TABLET PO PRN (21:51)
[2022-04-29] MEDS: Albumin 25% 25gram/100mL 25 GM/100 ML IV.SOLN IVPB SCH ×3 (00:33→15:39)
[2022-04-29 01:38] LABS: Basophils % 0.3 %; Eosinophils # 0.3 K/mcL (0.0-0.6); Eosinophils % 2.7 %; Hematocrit 31.4 % (37.5-50.1); Hemoglobin 10.5 g/dL (12.9-16.9); Immature Granulocytes % 0.6 % (0-4); Lymphocytes # 0.5 K/mcL (0.6-4.6); Lymphocytes % 4.5 %; Mean Corpuscular HGB Conc 33.4 g/dL (31.6-35.5); Mean Corpuscular Hemoglobin 31.7 pg (28.0-33.3); Mean Corpuscular Volume 94.9 fL (83.0-100.0); Mean Platelet Volume 10.6 fL (9.4-12.4); Monocytes # 0.4 K/mcL (0.0-1.3); Monocytes % 4.1 %; Neutrophils # 9.3 K/mcL (1.6-8.9); Platelet Count 147 K/mcL (140-400); Red Blood Count 3.31 M/mcL (4.19-5.50); Red Cell Distribution Width 14.1 % (11.5-14.5); Segmented Neutrophils % 87.8 %; White Blood Count 10.6 K/mcL (4.3-11.1)
[2022-04-29 01:55] LABS: Calcium 8.2 mg/dL (8.6-10.3); Magnesium 2.1 mg/dL (1.6-2.6); Potassium 3.7 mEq/L (3.5-5.1)
[2022-04-29] MEDS: Ampicillin/Sulbactam 3,000 MG in 0.9 % Sodium Chloride Mini Bag 100 ML IVPB SCH ×4 (02:56→20:03)
[2022-04-29] MEDS: Tolterodine LA (24 HR) 4 MG CAP.ER.24H PO SCH (07:42)
[2022-04-29] MEDS: Loratadine 10 MG TABLET PO SCH (07:42)
[2022-04-29] MEDS: Sucralfate 1 GM TABLET PO SCH ×2 (07:42→20:02)
[2022-04-29] MEDS: Metoprolol 100 MG TABLET PO SCH ×2 (07:42→20:02)
[2022-04-29] MEDS: *HR* Rivaroxaban 10 MG TABLET PO SCH (07:43)
[2022-04-29] MEDS: Vancomycin Oral Soln 125 MG/2.5 ML UDC PO SCH ×2 (07:43→18:35)
[2022-04-29] MEDS: *HR* HYDROcodone/Acet 5/325 mg TABLET PO PRN (08:07)
[2022-04-29] MEDS: Ondansetron 4 MG/2 ML VIAL IVP PRN (17:06)
[2022-04-29] MEDS: traZODone 50 MG TABLET PO PRN (20:03)
[2022-04-30] MEDS: Ampicillin/Sulbactam 3,000 MG in 0.9 % Sodium Chloride Mini Bag 100 ML IVPB SCH ×4 (03:39→20:20)
[2022-04-30 05:42] LABS: Calcium 8.7 mg/dL (8.6-10.3); Magnesium 2.3 mg/dL (1.6-2.6); Phosphorous 2.3 mg/dL (2.7-4.5); Potassium 3.5 mEq/L (3.5-5.1)
[2022-04-30] MEDS: Vancomycin Oral Soln 125 MG/2.5 ML UDC PO SCH ×2 (07:59→18:06)
[2022-04-30] MEDS: Metoprolol 100 MG TABLET PO SCH ×2 (07:59→20:21)
[2022-04-30] MEDS: *HR* Rivaroxaban 10 MG TABLET PO SCH (08:00)
[2022-04-30] MEDS: Tolterodine LA (24 HR) 4 MG CAP.ER.24H PO SCH (08:00)
[2022-04-30] MEDS: Sucralfate 1 GM TABLET PO SCH ×2 (08:00→20:20)
[2022-04-30] MEDS: Loratadine 10 MG TABLET PO SCH (08:00)
[2022-04-30] MEDS: Furosemide 40 MG/4 ML VIAL IVP SCH (16:22)
[2022-05-01] MEDS: Ampicillin/Sulbactam 3,000 MG in 0.9 % Sodium Chloride Mini Bag 100 ML IVPB SCH ×2 (03:44→09:55)
[2022-05-01] MEDS: Vancomycin Oral Soln 125 MG/2.5 ML UDC PO SCH (05:22)
[2022-05-01 06:37] VITALS: BP 131/90; PULSE 101; TEMP 98.7; O2SAT 97
[2022-05-01 08:51] LABS: BUN/Creatinine Ratio 23 (6-26); Blood Urea Nitrogen 23 mg/dL (6-20); Calcium 8.3 mg/dL (8.6-10.3); Carbon Dioxide 23 mEq/L (23-29); Chloride 101 mEq/L (98-107); Glucose 111 mg/dL (70-105); Magnesium 2.1 mg/dL (1.6-2.6); Osmolality,Calculated 280 (280-300); Phosphorous 2.9 mg/dL (2.7-4.5); Potassium 3.3 mEq/L (3.5-5.1); Sodium 133 mEq/L (136-145)
[2022-05-01] MEDS: Loratadine 10 MG TABLET PO SCH (09:58)
[2022-05-01] MEDS: Sucralfate 1 GM TABLET PO SCH (09:58)
[2022-05-01] MEDS: Metoprolol 100 MG TABLET PO SCH (09:58)
[2022-05-01] MEDS: Tolterodine LA (24 HR) 4 MG CAP.ER.24H PO SCH (09:58)
[2022-05-01] MEDS: *HR* Rivaroxaban 10 MG TABLET PO SCH (09:58)
[2022-05-01] MEDS: Furosemide 40 MG/4 ML VIAL IVP SCH (10:01)
[2022-05-01] MEDS ORDERED: cefTRIAXone 2,000 MG in 0.9 % Sodium Chloride 20 ML IVP SCH (11:00)
== END 2022-05-01 16:47 | disposition home health service (06) | DRG 871 ==
LOC: EMEROOARM 13:53 → 2NNU 18:48 → SUATTDRO 18:48 → 2NNU 19:42 → ICNU 04-27 08:03 → 2NNU 04-27 08:06 → 3NENU 04-30 10:25
PROVIDERS: ADMIT Internal Medicine; ATTEND Internal Medicine